=== PATIENT | female | born 2005 | race Caucasian/White ===

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

== ENCOUNTER 2024-11-02 14:17 | Outpatient (CLI) | payer BC, SELFPAY | END 2024-11-02 14:18 | disposition home or self-care (01) | LOC: NFLDREF 11-04 03:17 | PROVIDERS: PCP Nurse Practitioner Family; Referring Provider Nurse Practitioner Family; Visit Provider Physician Assistant Medical | DX: R55 Syncope and collapse (principal) | CPT/HCPCS: 80053; 82728; 84443 ==

== ENCOUNTER 2024-11-16 08:43 | Outpatient (CLI) | payer BC, SELFPAY | END 2024-11-16 08:44 | disposition home or self-care (01) | PROVIDERS: PCP Physician Assistant Medical; Visit Provider Physician Assistant Medical | DX: R55 Syncope and collapse (principal) | CPT/HCPCS: 93306 ==